=== PATIENT | female | born 1940 | race Two or more races ===

== ENCOUNTER 2021-09-26 11:39 | Emergency (ER) | payer OTHER ==
[~2021-09-26] VITALS: Ht 149.9 cm; Wt 67.6 kg
[2021-09-26] MEDS ORDERED: ONDANSETRON HCL/PF 4 MG/2 ML VIAL IVP ONE (12:00)
[2021-09-26] MEDS ORDERED: MORPHINE SULFATE INJ 2 MG/ML DISP.SYRIN IV ONE (12:00)
[2021-09-26] MEDS ORDERED: diphenhydrAMINE HCL 50 MG/ML VIAL IV ONE (12:00)
[2021-09-26] MEDS ORDERED: ONDANSETRON HCL/PF 4 MG/2 ML VIAL ONE (12:04)
[2021-09-26] MEDS ORDERED: MORPHINE SULFATE INJ 2 MG/ML DISP.SYRIN ONE (12:04)
[2021-09-26] MEDS ORDERED: diphenhydrAMINE HCL 50 MG/ML VIAL ONE (12:05)
--- NOTE | 2021-09-26 12:15 | NUR ---
Anxious. Moans in pain states "migrainas" Medicated as per orders
[2021-09-26 12:22] LABS: BASOPHILS # (AUTO) 0.1 K/uL (0.0-0.2); BASOPHILS % (AUTO) 0.7 % (0.0-2.0); EOSINOPHILS % (AUTO) 0.5 % (0.0-6.0); HEMATOCRIT 41 % (33-45); HEMOGLOBIN 14.1 g/dL (11.5-14.8); LYMPHOCYTES # (AUTO) 1.8 K/uL (0.8-4.8); LYMPHOCYTES % (AUTO) 19.2 % (20.0-44.0); MEAN CORPUSCULAR HGB CONC 34 g/dl (31.0-36.0); MEAN CORPUSCULAR VOLUME 93 fL (82-100); MONOCYTES # (AUTO) 0.6 K/uL (0.1-1.30); MONOCYTES % (AUTO) 5.9 % (2.0-12.0); NEUTROPHILS % (AUTO) 73.7 % (43.0-81.0); PLATELET COUNT (AUTO) 275 K/uL (150-450); WHITE BLOOD COUNT (AUTO) 9.5 K/uL (4.3-11.0)
[2021-09-26 12:38] LABS: ALBUMIN 3.6 g/dL (3.4-5.0); BILIRUBIN,DIRECT 0.2 mg/dL (0.0-0.2); BILIRUBIN,TOTAL 0.9 mg/dL (0.2-1.0); CREATININE 0.9 mg/dL (0.6-1.3); POTASSIUM 3.5 mmol/L (3.5-5.1); TOTAL PROTEIN, SERUM 7.9 g/dL (6.4-8.2)
[2021-09-26] MEDS ORDERED: SUMATRIPTAN SUCCINATE 6 MG/0.5 ML VIAL SQ ONE ×2 (13:00→13:30)
[2021-09-26] MEDS ORDERED: IV NS 0.9% 1,000 ML BAG IV ONE (13:00)
[2021-09-26] MEDS ORDERED: SUMA50TA PO (13:29)
--- NOTE | 2021-09-26 14:00 | NUR ---
For discharge. 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
[2021-09-26 14:58] VITALS: BP 160/81
--- NOTE | 2021-09-26 14:58 | NUR ---
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 Patient discharged to home in stable condition. Written and verbal after care instructions given. Patient/daughter verbalizes understanding of instruction.
== END 2021-09-26 14:59 | disposition home or self-care (01) ==
LOC: ER 12:11
DX: R51.9 Headache, unspecified (principal); I10 Essential (primary) hypertension; E11.9 Type 2 diabetes mellitus without complications
CPT/HCPCS: 36415; 70450; 71045; 80048; 80076; 82962; 85025; 85730; 93005; 96361; 96372; 96374; 96375; 99285; J1200; J2270; J2405; J3030; J7030